=== PATIENT | female | born 1995 | race Caucasian/White ===

== ENCOUNTER 2020-11-20 03:42 | Emergency (ER) | payer OTHER, SELFPAY ==
[2020-11-20 03:44] VITALS: BP 102/67; PULSE 66; RESP 16; TEMP 36.4; O2SAT 99; BMI 24.7
--- NOTE | 2020-11-20 04:01 | EDS_ITS ---
HPI History of Present Illness Chief Complaint: Complaint Informant: patient and spouse/S.O. Onset/Context/Timing Onset: Today Context: Gradual Onset Timing: Continuous and Waxes and wanes Quality: ache Location: R low back, kidney Current Severity: Moderate Maximum Severity: Severe Worsened by: nothing Relieved by: nothing Associated Symptoms Associated Symptoms: foul-smelling urine, frequency Narrative Narrative: 25-week G1, P0 otherwise healthy female presenting with gradual onset of foul-smelling urine, frequency, which quickly developed into right low back pain earlier today. She states she has had 2 prior episodes similar to this that were diagnosed with pyelonephritis both times. She has not yet followed up with a specialist. Her CONTROL SYSTEMS DESIGNER is Dr. Mackenzie in [facility]. She has been feeling the baby move. She had some minor vaginal bleeding with intercourse 1 week ago or so, but that resolved and she has had no other issues since. She denies any fevers, chills, nausea, vomiting, or any other acute symptoms right now. PFSH PFSH no medical history Home Medications aspirin 81 mg PO DAILY 11/20/20 [History Last Taken Unknown] cephalexin 500 mg PO Q6 #40 capsule 11/20/20 [Rx Last Taken Unknown] Allergy/AdvReac Type Severity Reaction Status Date / Time No Known Allergies Allergy Verified 11/20/20 03:49 Social History Smoking Status: Never smoker ROS ROS ED Constitutional Constitutional ED: Denies chills or fever(s) Eyes Eyes: Denies change in vision or diplopia ENT ENT ED: Denies rhinorrhea or sore throat Cardiovascular Cardiovascular: Denies chest pain or palpitations Respiratory/Chest Respiratory/Chest: Denies cough or dyspnea Gastrointestinal Gastrointestinal: Denies abdominal pain, diarrhea, nausea or vomiting Genitourinary Genitourinary ED: Reports as per HPI, movement Details: present and flank pain; Denies abdominal discomfort, contractions, decreased urination, dysuria or hematuria Musculoskeletal Musculoskeletal: Reports back pain; Denies neck pain Integumentary Denies abscess or rash Neurologic Neurologic: Denies headache(s), paresthesias or weakness Psychiatric Psychiatric: Denies anxiety or suicidal thoughts EXAM Physical Exam Const Vital Signs: 11/20/20 03:44 Temperature 97.5 F L Temperature Source Oral Pulse Rate 66 Respiratory Rate 16 Blood Pressure 102/67 Blood Pressure Mean 78 Pulse Ox 99 Oxygen Delivery Method Room Air Positive well nourished and well developed General Appearance ED: well developed and NAD HEENT Reports moist mucous membranes normocephalic and atraumatic Eyes PERRL and EOMs intact bilaterally Neck full ROM and supple Resp normal respiratory effort and clear to auscultation bilaterally Cardio regular rate, regular rhythm and no murmurs GI non-tender GI Narrative: Abdomen distended above the umbilicus, consistent with second trimester . No tenderness. Auscultation: normoactive bowel sounds Palpation: soft Back/Spine General Back: CVA tenderness right and other FROM Extremity normal to inspection General Extremety ED: Negative for edema, pulses abnormal or tenderness General Extremity: Negative for edema or pulses abnormal Neuro oriented x3, CN's II-XII intact bilaterally and no sensory deficits noted Sensorium / Orientation: awake and alert Motor Exam: strength 5/5 throughout Skin no rashes or lesions noted and no wounds MDM MDM MDM Narrative Medical decision making narrative: Patient's urine is infected, her renal function is normal. This is consistent with pyelonephritis, however she is well- appearing and her vital signs are normal she is afebrile not vomiting, and clinically appears well with a normal blood pressure. She does not see an engraver optical frames in our network, I discussed with Dr. Reema Saldana who was the on-call for unassigned, she states given all of the above, she would give her a dose of IV antibiotic, she had already received IV Rocephin from us here, and then she may be treated as an outpatient and follow-up closely with her CONTROL SYSTEMS DESIGNER after the weekend, and she will probably require antibiotic suppression for the rest of her . Will start her on cephalexin for a 10-day course for now and the patient is comfortable with that overall plan. Of note, given the patient's history, this is likely due to infection as opposed to stone, but the patient presents when ultrasound is not available. Lab Data Attestation: I reviewed the patient's lab results. Labs: Laboratory Results - last 24 hr 11/20/20 11/20/20 11/20/20 04:05 04:05 04:05 WBC 11.2 H RBC 3.65 L Hgb 11.1 L Hct 33.4 L MCV 91.5 MCH 30.4 MCHC 33.2 RDW Std Deviation 42.6 RDW Coeff of [place] 12.8 Plt Count 193 MPV 11.4 Immature Gran % (Auto) 0.500 Neut % (Auto) 68.3 Lymph % (Auto) 21.8 [place] % (Auto) 8.3 Eos % (Auto) 0.7 Baso % (Auto) 0.4 Absolute Neuts (auto) 7.6 Absolute Lymphs (auto) 2.43 Nucleated RBC % 0 Sodium 139 Potassium 3.3 L Chloride 106 Carbon Dioxide 27.0 Anion Gap 6 BUN 11 Creatinine 0.59 Estim Creat Clear Calc 130.02 Est GFR (MDRD) Af Amer 159 Est GFR (MDRD) Non-Af 131 BUN/Creatinine Ratio 18.8 Glucose 85 Calcium 8.5 Urine Color Yellow Urine Clarity Clear Urine pH 7.0 Ur Specific [place] 1.005 Urine Protein 30 H Urine Glucose (UA) Normal Urine Ketones Negative Urine Occult Blood 150 H Urine Nitrite Negative Urine Bilirubin Negative Urine Urobilinogen Normal Ur Leukocyte Esterase 500 H Urine RBC 0 SEEN Urine WBC 10-25 SEEN Ur Squamous Epith Cells 0-5 SEEN Urine Bacteria 3+ Urine Mucus 0 SEEN Discharge Plan Triage Chief Complaint: Complaint ED Provider: Emmanuel Blackman Dx/Rx/DC Orders Clinical Impression: Pyelonephritis affecting in second trimester Instructions: ED Pyelonephritis, Female (Adult) Prescriptions: New cephalexin 500 mg capsule 500 mg PO Q6 Qty: 40 RF: 0 No Action aspirin 81 mg Tablet 81 mg PO DAILY RF: 0 Primary Care Provider: Care Physician,No Primary Referrals: Dr. Avril [Other] - 3-5 Days (Call for appointment. Urine culture was sent Sat morning and will likely return by Sunday or Sunday.) Care Physician,No Primary [Primary Care Provider] - Disposition Disposition: Home, self care
[2020-11-20 04:10] LABS: Mucous, Urine 0 SEEN /hpf (<or=2+); Red Blood Cells-Urine 0 SEEN /hpf (0-5)
[2020-11-20] MEDS: Acetaminophen 500 MG Tablet 1000 MG PO (04:10)
[2020-11-20 04:15] LABS: Absolute Lymphocyte Count 2.43 X10^3/uL (0.83-4.51); Absolute Neutrophil Count 7.6 X10^3/uL (2.0-7.7); Basophil# 0.05 X10^3/uL; Basophil% 0.4 % (0-1); Eosinophil# 0.08 X10^3/uL; Eosinophils% 0.7 % (0-5); Hematocrit 33.4 % (37-47); Hemoglobin 11.1 g/dL (12.0-15.0); Lymphocyte # 2.43 X10^3/ul (0.83-4.51); Lymphocyte % 21.8 % (19-41); Mean Corp Hgb Conc 33.2 g/dL (32-36); Mean Corpuscular Hgb 30.4 pg (27.0-32.0); Mean Corpuscular Volume 91.5 fL (81-99); Mean Platelet Vol. 11.4 fl (6.2-12.0); Monocyte# 0.93 X10^3/uL; Monocyte% 8.3 % (0-10); NRBC Flagged by Analyzer 0 % (0-5); Neutrophil # 7.61 X10^3/uL (2.7-7.7); Neutrophil % 68.3 % (47-70); Platelet Count 193 K/mm3 (150-450); RBC Distribution Width CV 12.8 % (11.6-14.6); RBC Distribution Width SD 42.6 fl (35.1-43.9); Red Blood Count 3.65 M/mm3 (4.2-5.4); White Blood Count 11.2 K/mm3 (4.4-11.0)
[2020-11-20 04:17] LABS: Color, Urine Yellow (Yellow); Glucose, Dipstick Normal (Normal); Ketone-Dipstick Negative (Negative); Leukocyte Esterase-Dipstick 500 /ul (Negative); Nitrite-Dipstick Negative (Negative); Occult Blood-Urine 150 /ul (Negative); Protein-Dipstick 30 mg/dl (Negative); Specific Gravity, Urine 1.005 (1.002-1.030); Urine Bilirubin Dipstick Negative (Negative); Urine Clarity Clear (Clear); Urine Urobilinogen Normal (Normal)
[2020-11-20 04:24] LABS: Squamous Epithelial Cells - UA 0-5 SEEN /hpf (5-10); White Blood Cells 10-25 SEEN /hpf (0-5)
[2020-11-20 04:25] LABS: Bacteria 3+ /hpf (None Seen)
[2020-11-20 04:29] LABS: Anion Gap 6 (5-15); BUN 11 mg/dL (7-18); BUN/Creat Ratio 18.8 RATIO (10-20); Calcium,Total 8.5 mg/dL (8.5-10.1); Chloride 106 mmol/L (98-107); Creatinine, Serum 0.59 mg/dL (0.55-1.02); EST Glomerular Filtration Rate 131 mL/min (>60); Est Glom Filt Rate - Afr Amer 159 mL/min (>60); Estimated Creatinine Clearance 130.02 ml/min; Glucose 85 mg/dL (74-106); Potassium 3.3 mmol/L (3.5-5.1); Sodium Level 139 mmol/L (136-145)
[2020-11-20] MEDS: Ceftriaxone 1 GM/50 ML BAG IV (04:48)
[2020-11-20 05:11] VITALS: BP 102/67; PULSE 66; RESP 16; TEMP 36.4; O2SAT 99
== END 2020-11-20 05:13 | disposition home or self-care (01) ==
PROVIDERS: Emergency Provider Emergency Medicine
DX: O23.02 Infections of kidney in pregnancy, second trimester (principal); Z3A.25 25 weeks gestation of pregnancy; Z79.82 Long term (current) use of aspirin
CPT/HCPCS: 80048; 81001; 85025; 87077; 87086; 87088; 87186; 96365; 99283; A4216

== ENCOUNTER → 2024-01-25 | Outpatient (CLI) | payer OTHER, SELFPAY | END | disposition home or self-care (01) | LOC: LABSPEC 10:05 | PROVIDERS: Referring Provider Physician Assistant Surgical; Visit Provider Physician Assistant Surgical | DX: N39.0 Urinary tract infection, site not specified (principal) | CPT/HCPCS: 87086; 87088; 87186 ==

== ENCOUNTER 2024-06-13 15:08 | Outpatient (CLI) | payer OTHER, SELFPAY ==
[2024-06-13 14:37] VITALS: BP 114/68; PULSE 86; RESP 18; TEMP 36.4; O2SAT 99
[2024-06-13 15:34] VITALS: BP 109/60; PULSE 75; RESP 14; TEMP 36.6; O2SAT 100
--- NOTE | 2024-06-16 17:14 | OB.TRI.PN ---
Progress Notes Date of Service: 06/13/24 Progress Note: seen for fall, monitored 4 hours, 25 weeks no regular ctx reassuring FHT. dc home fu with regualr physician Assessment & Plan (1) 25 weeks gestation of : (2) Abdominal trauma:
== END 2024-06-13 17:20 | disposition home or self-care (01) ==
LOC: WPOUT 15:18 → WP 15:19
PROVIDERS: Referring Provider Obstetrics & Gynecology; Visit Provider Obstetrics & Gynecology
DX: O9A.212 Injury, poisoning and certain other consequences of external causes complicating pregnancy, second trimester (principal); S39.91XA Unspecified injury of abdomen, initial encounter; W19.XXXA Unspecified fall, initial encounter; Z3A.25 25 weeks gestation of pregnancy
CPT/HCPCS: 59025; 59050; 99221; G0378

== ENCOUNTER 2024-06-21 11:55 | Outpatient (CLI) | payer OTHER, SELFPAY ==
[2024-06-21 12:03] VITALS: BP 98/63; PULSE 89; PULSE 93; O2SAT 98
[2024-06-21 12:04] VITALS: RESP 15; TEMP 36.6; O2SAT 100
--- NOTE | 2024-06-21 14:06 | OB.TRI.NOTE ---
HPI - General General Date of Service: 06/21/24 Chief Complaint: decreased movement HPI Narrative SONAL ROWLEY, is a 29 F who presents at 27 weeks for decreased movement today, seeks care in [facility] Medical History (Updated 06/21/24 @ 14:07 by Jessica Lanza CNM) Acute bronchitis, unspecified Contact with and (suspected) exposure to other viral communicable diseases Acute sinusitis, unspecified Acute maxillary sinusitis, unspecified Home Medications ?Medication ?Instructions ?Recorded ?Last Taken ?Type aspirin 81 mg tablet 81 mg PO DAILY 11/20/20 Unknown History azithromycin 250 mg tablet See Rx Instructions PO .COMPLEX #6 04/09/24 Unknown Rx tabs Allergy/AdvReac Type Severity Reaction Status Date / Time No Known Allergies Allergy Verified 06/13/24 14:37 Social History Smoking Status: Never smoker NST FHR Rate Baby A Baseline: 140 Variability:: Minimal Accelerations:: 10 x 10 Decelerations:: None NST Reactive:: Appropriate for gestational age FHR Category:: Category I Uterine Activity:: none Assessment & Plan (1) Decreased movement: COMMENT: active fetus, reassuring FHT Charges/Coding Procedures Urinary/Genital [id number]: 60581-20 non-stress test Interp
== END 2024-06-21 12:50 | disposition home or self-care (01) ==
LOC: WPOUT 11:55 → WP 11:56
PROVIDERS: Referring Provider Obstetrics & Gynecology; Visit Provider Obstetrics & Gynecology
DX: O36.8120 Decreased fetal movements, second trimester, not applicable or unspecified (principal); Z3A.27 27 weeks gestation of pregnancy
CPT/HCPCS: 59050; 99221; G0378